=== PATIENT | female | born 1940 | race Caucasian/White ===

== ENCOUNTER 2017-12-02 21:38 | Outpatient (REF) | payer MEDICARE, SELFPAY | END 2017-12-02 21:58 | LOC: LBN 21:38 | PROVIDERS: PCP Family Medicine; Visit Provider Family Medicine | DX: R19.7 Diarrhea, unspecified (principal) | CPT/HCPCS: 82272 ==

== ENCOUNTER 2017-12-03 21:30 | Outpatient (REF) | payer MEDICARE, SELFPAY | END 2017-12-03 21:50 | LOC: NCHCN 21:30 | PROVIDERS: PCP Family Medicine; Visit Provider Family Medicine | DX: R19.7 Diarrhea, unspecified (principal) | CPT/HCPCS: 82272 ==

== ENCOUNTER 2017-12-04 20:37 | Outpatient (REF) | payer MEDICARE, SELFPAY | END 2017-12-04 20:57 | LOC: NCHCN 20:37 | PROVIDERS: PCP Family Medicine; Visit Provider Family Medicine | DX: R19.7 Diarrhea, unspecified (principal) | CPT/HCPCS: 82272 ==

== ENCOUNTER 2017-12-10 15:28 | Outpatient (REF) | payer MEDICARE, SELFPAY ==
[2017-12-10 21:25] LABS: CREATININE 1.08 mg/dL (0.55-1.02); Estimated GFR 49.33 (mL/min/1.73m2)
[2017-12-10 21:32] LABS: HCT 34.3 % (36.0-46.0); HGB 10.6 g/dL (12.0-15.5); Mean Corp. HGB Concentration 30.9 g/dL (32.0-36.0); Mean Corpuscular Hemoglobin 26.8 pg (27.0-33.0); Mean Corpuscular Volume 86.8 fL (80-95); Mean Platelet Volume 9.7 fL (8.0-11.0); Platelet Count 245 x1000/uL (130-400); RBC 3.95 m/cumm (4.00-5.20); White Blood Cell Count 5.06 k/cumm (4.4-10.8)
[2017-12-12 15:13] LABS: Levetiracetam 29.7 mcg/mL
== END 2017-12-10 15:48 ==
LOC: NCHCN 15:28
PROVIDERS: PCP Family Medicine; Visit Provider Family Medicine
DX: N18.9 Chronic kidney disease, unspecified (principal); R56.9 Unspecified convulsions; Z51.81 Encounter for therapeutic drug level monitoring; Z79.899 Other long term (current) drug therapy
CPT/HCPCS: 85027; 80177; 82565

== ENCOUNTER 2018-02-01 20:53 | Outpatient (REF) | payer MEDICARE, SELFPAY ==
[2018-02-01 22:23] LABS: VALPROIC ACID < 3 ug/mL (50-100)
== END 2018-02-01 21:13 ==
LOC: NCHCN 20:53
PROVIDERS: PCP Family Medicine; Visit Provider Family Medicine
DX: R56.9 Unspecified convulsions (principal); Z51.81 Encounter for therapeutic drug level monitoring; Z79.899 Other long term (current) drug therapy; N18.9 Chronic kidney disease, unspecified
CPT/HCPCS: 80164

== ENCOUNTER 2018-02-17 23:29 | Outpatient (REF) | payer MEDICARE, SELFPAY ==
[2018-02-19 15:32] LABS: Levetiracetam 30.2 mcg/mL
== END 2018-02-17 23:49 ==
LOC: NCHCN 23:29
PROVIDERS: PCP Family Medicine; Visit Provider Family Medicine
DX: N18.9 Chronic kidney disease, unspecified (principal); R56.9 Unspecified convulsions; Z51.81 Encounter for therapeutic drug level monitoring
CPT/HCPCS: 80177

== ENCOUNTER 2018-03-23 20:32 | Outpatient (REF) | payer MEDICARE, SELFPAY ==
[2018-03-23 22:12] LABS: Iron 33 ug/dL (50-175); Total Iron Binding Capacity 268 ug/dL (250-450); Transferrin Sat 12 % (15-50)
[2018-03-23 22:21] LABS: ALT 21 U/L (12-78); AST 19 U/L (15-37); Alkaline Phosphatase 82 U/L (46-116); Anion Gap 4.9 mmol/L (3-11); BUN 25 mg/dL (7-18); Bilirubin, Total 0.4 mg/dL (0.2-1.0); CO2 33.1 mmol/L (21.0-32.0); CREATININE 1.13 mg/dL (0.55-1.02); Calcium 8.9 mg/dL (8.5-10.1); Chloride 106 mmol/L (98-107); Estimated GFR 46.82 (mL/min/1.73m2); Glucose 93 mg/dL (70-100); Potassium 3.7 mmol/L (3.5-5.1); Sodium 144 mmol/L (136-145); TSH 1.03 uIU/mL (0.358-3.74)
== END 2018-03-23 20:52 ==
LOC: NCHCN 20:32
PROVIDERS: PCP Family Medicine; Visit Provider Family Medicine
DX: E05.90 Thyrotoxicosis, unspecified without thyrotoxic crisis or storm (principal); D64.9 Anemia, unspecified; M62.81 Muscle weakness (generalized); R73.09 Other abnormal glucose
CPT/HCPCS: 80053; 83036; 83540; 83550; 84443

== ENCOUNTER 2018-06-29 22:58 | Outpatient (REF) | payer MEDICARE, SELFPAY ==
[2018-06-29 23:45] LABS: CREATININE 1.14 mg/dL (0.55-1.02); Estimated GFR 46.34 (mL/min/1.73m2)
== END 2018-06-29 23:18 ==
LOC: NCHCN 22:58
PROVIDERS: PCP Family Medicine; Visit Provider Family Medicine
DX: N18.9 Chronic kidney disease, unspecified (principal); R79.89 Other specified abnormal findings of blood chemistry
CPT/HCPCS: 82565

== ENCOUNTER 2018-09-10 21:09 | Outpatient (REF) | payer MEDICARE, SELFPAY ==
[2018-09-10 21:41] LABS: Anion Gap 7.1 mmol/L (3-11); BUN 27 mg/dL (7-18); CO2 29.9 mmol/L (21.0-32.0); CREATININE 1.06 mg/dL (0.55-1.02); Calcium 8.5 mg/dL (8.5-10.1); Chloride 107 mmol/L (98-107); Estimated GFR 50.27 (mL/min/1.73m2); Glucose 83 mg/dL (70-100); Potassium 4.1 mmol/L (3.5-5.1); Sodium 144 mmol/L (136-145)
== END 2018-09-10 21:29 ==
LOC: LBN 21:09
PROVIDERS: PCP Family Medicine; Visit Provider Family Medicine
DX: M62.81 Muscle weakness (generalized) (principal); F33.8 Other recurrent depressive disorders
CPT/HCPCS: 80048

== ENCOUNTER 2018-10-01 20:44 | Outpatient (REF) | payer MEDICARE, SELFPAY ==
[2018-10-01 21:18] LABS: Abs Immature Grans 0.01 k/cumm (0.0-0.09); Absolute Basophil Count 0.01 k/cumm (0.0-0.2); Absolute Eosinophil Count 0.06 k/cumm (0.0-0.7); Absolute Monocyte Count 0.46 k/cumm (0.11-0.7); Absolute Neutrophil Count 3.68 k/cumm (1.2-6.7); Basophils % 0.2; Eosinophils % 1.1; HCT 36.6 % (36.0-46.0); HGB 11.3 g/dL (12.0-15.5); Immature Grans % 0.2; Lymphocytes % 23.6; Mean Corp. HGB Concentration 30.9 g/dL (32.0-36.0); Mean Corpuscular Hemoglobin 26.5 pg (27.0-33.0); Mean Corpuscular Volume 85.9 fL (80-95); Mean Platelet Volume 9.5 fL (8.0-11.0); Monocytes % 8.3; Neutrophils % 66.6; Platelet Count 250 x1000/uL (130-400); RBC 4.26 m/cumm (4.00-5.20); White Blood Cell Count 5.52 k/cumm (4.4-10.8)
[2018-10-01 21:36] LABS: ALT 20 U/L (12-78); AST 14 U/L (15-37); Albumin 2.8 g/dL (3.4-5.0); Alkaline Phosphatase 69 U/L (46-116); Anion Gap 4.9 mmol/L (3-11); BUN 29 mg/dL (7-18); Bilirubin, Total 0.2 mg/dL (0.2-1.0); CO2 31.1 mmol/L (21.0-32.0); CREATININE 1.19 mg/dL (0.55-1.02); Calcium 8.4 mg/dL (8.5-10.1); Chloride 107 mmol/L (98-107); Estimated GFR 43.98 (mL/min/1.73m2); Glucose 111 mg/dL (70-100); Potassium 3.6 mmol/L (3.5-5.1); Sodium 143 mmol/L (136-145); Total Protein 6.5 g/dL (6.4-8.2)
== END 2018-10-01 21:04 ==
LOC: NCHCN 20:44
PROVIDERS: PCP Family Medicine; Visit Provider Family Medicine
DX: R19.7 Diarrhea, unspecified (principal); R56.9 Unspecified convulsions; F33.8 Other recurrent depressive disorders
CPT/HCPCS: 80048; 80053; 85025

== ENCOUNTER 2018-10-06 21:54 | Outpatient (REF) | payer MEDICARE, SELFPAY | END 2018-10-06 22:14 | LOC: NCHCN 21:54 | PROVIDERS: PCP Family Medicine; Visit Provider Family Medicine | DX: R19.7 Diarrhea, unspecified (principal) | CPT/HCPCS: 87324 ==

== ENCOUNTER 2019-03-09 22:06 | Outpatient (REF) | payer MEDICARE, SELFPAY ==
[2019-03-09 23:05] LABS: ALT 18 U/L (14-59); AST 17 U/L (15-37); Albumin 2.8 g/dL (3.4-5.0); Alkaline Phosphatase 70 U/L (46-116); Anion Gap 7.6 mmol/L (3-11); BUN 25 mg/dL (7-18); Bilirubin, Total 0.2 mg/dL (0.2-1.0); CO2 30.4 mmol/L (21.0-32.0); Calcium 8.3 mg/dL (8.5-10.1); Chloride 106 mmol/L (98-107); Estimated GFR 53.76 (mL/min/1.73m2); Glucose 105 mg/dL (74-106); Potassium 3.5 mmol/L (3.5-5.1); Sodium 144 mmol/L (136-145); Total Protein 6.4 g/dL (6.4-8.2)
== END 2019-03-09 22:26 ==
LOC: LBN 22:06
PROVIDERS: PCP Family Medicine; Visit Provider Family Medicine
DX: R56.9 Unspecified convulsions (principal); D50.9 Iron deficiency anemia, unspecified; E03.9 Hypothyroidism, unspecified
CPT/HCPCS: 80053; 84443

== ENCOUNTER 2019-05-18 17:07 | Outpatient (REF) | payer MEDICARE, SELFPAY ==
[2019-05-23 10:49] LABS: Misc Referral (MAYO) See Comments
== END 2019-05-18 17:27 ==
LOC: LBN 17:07
PROVIDERS: PCP Family Medicine; Visit Provider Internal Medicine
DX: Z11.59 Encounter for screening for other viral diseases (principal); R50.9 Fever, unspecified
CPT/HCPCS: 87449; 87631

== ENCOUNTER 2019-06-23 18:30 | Outpatient (REF) | payer MEDICARE, MEDICAID, SELFPAY ==
[2019-06-23 19:07] LABS: CREATININE 0.96 mg/dL (0.55-1.02); Estimated GFR 56.36 (mL/min/1.73m2)
== END 2019-06-23 18:50 ==
LOC: NCHCN 18:30
PROVIDERS: PCP Family Medicine; Visit Provider Family Medicine
DX: R68.89 Other general symptoms and signs (principal)
CPT/HCPCS: 82565

== ENCOUNTER 2019-09-06 22:53 | Outpatient (REF) | payer MEDICARE, MEDICAID, SELFPAY ==
[2019-09-06 17:44] LABS: Anion Gap 7.5 mmol/L (3-11); BUN 21 mg/dL (7-18); CO2 29.5 mmol/L (21.0-32.0); CREATININE 0.89 mg/dL (0.55-1.02); Calcium 8.5 mg/dL (8.5-10.1); Chloride 105 mmol/L (98-107); Glucose 125 mg/dL (74-106); Potassium 3.8 mmol/L (3.5-5.1); Sodium 142 mmol/L (136-145)
== END 2019-09-06 23:13 ==
LOC: LBN 22:53
PROVIDERS: PCP Family Medicine; Visit Provider Family Medicine
DX: E03.9 Hypothyroidism, unspecified (principal); D64.9 Anemia, unspecified; R68.89 Other general symptoms and signs
CPT/HCPCS: 80048

== ENCOUNTER 2019-12-09 17:00 | Outpatient (REF) | payer MEDICARE, MEDICAID, SELFPAY ==
[2019-12-09 17:21] LABS: Estimated GFR 53.62 (mL/min/1.73m2)
== END 2019-12-09 17:20 ==
LOC: NCHCN 17:00
PROVIDERS: PCP Family Medicine; Visit Provider Family Medicine
DX: R68.89 Other general symptoms and signs (principal); F33.8 Other recurrent depressive disorders
CPT/HCPCS: 82565

== ENCOUNTER 2020-01-25 17:00 | Outpatient (REF) | payer MEDICARE, MEDICAID, SELFPAY ==
[2020-01-25 17:06] LABS: HCT 41.5 % (36.0-46.0); HGB 12.8 g/dL (11.2-15.7); MCH 27.2 pg (27.0-33.0); MCHC 30.8 % (32.0-36.0); MCV 88.1 fL (80-95); MPV 9.2 fL (8.0-11.0); Platelet Count 229 10^3/uL (130-400); RBC 4.71 10^6/uL (3.93-5.22); RDW 14.6 % (11.7-14.6); RDW-SD 46.9 fL; WBC 5.06 10^3/uL (4.4-10.8)
[2020-01-25 18:53] LABS: Hemoglobin A1C 5.8 % (<5.7)
[2020-01-25 18:57] LABS: Ferritin 72 ng/mL (8-252)
[2020-01-25 19:03] LABS: Vitamin D 25 Total 20.9 ng/ml (30-100)
== END 2020-01-25 17:20 ==
LOC: LBN 17:00
PROVIDERS: PCP Family Medicine; Visit Provider Family Medicine
DX: D50.9 Iron deficiency anemia, unspecified (principal); E55.9 Vitamin D deficiency, unspecified; R73.09 Other abnormal glucose
CPT/HCPCS: 82306; 85027; 82728; 83036

== ENCOUNTER 2020-04-09 18:24 | Outpatient (REF) | payer MEDICARE, MEDICAID, SELFPAY ==
[2020-04-09 17:46] LABS: ALT 26 U/L (14-59); AST 20 U/L (15-37); Alkaline Phosphatase 98 U/L (46-116); BUN 25 mg/dL (7-18); Bilirubin, Total 0.4 mg/dL (0.2-1.0); CREATININE 1.1 mg/dL (0.55-1.02); Calcium 8.8 mg/dL (8.5-10.1); Chloride 106 mmol/L (98-107); Estimated GFR 48.04 (mL/min/1.73m2); Glucose 106 mg/dL (74-106); Potassium 4.1 mmol/L (3.5-5.1); Sodium 143 mmol/L (136-145); TSH 1.36 uIU/mL (0.36-3.74); Total Protein 6.9 g/dL (6.4-8.2)
== END 2020-04-09 18:25 | disposition home or self-care (01) ==
LOC: LBN 18:24
PROVIDERS: PCP Family Medicine; Visit Provider Family Medicine
DX: F33.8 Other recurrent depressive disorders (principal); E11.9 Type 2 diabetes mellitus without complications; D50.9 Iron deficiency anemia, unspecified; K21.9 Gastro-esophageal reflux disease without esophagitis; R68.89 Other general symptoms and signs
CPT/HCPCS: 80053; 84443

== ENCOUNTER 2020-06-06 17:15 | Outpatient (REF) | payer MEDICARE, MEDICAID, SELFPAY ==
[2020-06-06 18:33] LABS: CREATININE 1.1 mg/dL (0.55-1.02); Estimated GFR 48.04 (mL/min/1.73m2)
== END 2020-06-06 17:16 | disposition home or self-care (01) ==
LOC: LBN 17:15
PROVIDERS: PCP Family Medicine; Visit Provider Family Medicine
DX: R68.89 Other general symptoms and signs (principal)
CPT/HCPCS: 82565

== ENCOUNTER 2020-10-03 19:10 | Outpatient (REF) | payer MEDICARE, MEDICAID, SELFPAY ==
[2020-10-03 20:00] LABS: Anion Gap 7.8 mmol/L (3-11); BUN 26 mg/dL (7-18); CO2 30.2 mmol/L (21.0-32.0); CREATININE 0.9 mg/dL (0.55-1.02); Calcium 8.7 mg/dL (8.5-10.1); Chloride 109 mmol/L (98-107); Glucose 105 mg/dL (74-106); Potassium 4.4 mmol/L (3.5-5.1); Sodium 147 mmol/L (136-145)
== END 2020-10-03 19:11 | disposition home or self-care (01) ==
LOC: NCHCN 19:10
PROVIDERS: PCP Family Medicine; Visit Provider Family Medicine
DX: R68.89 Other general symptoms and signs (principal)
CPT/HCPCS: 80048

== ENCOUNTER 2020-12-05 07:36 | Outpatient (REF) | payer MEDICARE, MEDICAID, SELFPAY ==
[2020-12-04 22:16] LABS: Estimated GFR 53.48 (mL/min/1.73m2)
== END 2020-12-05 07:37 | disposition home or self-care (01) ==
LOC: LBN 07:36
PROVIDERS: PCP Family Medicine; Visit Provider Family Medicine
DX: R68.89 Other general symptoms and signs (principal)
CPT/HCPCS: 82565

== ENCOUNTER 2021-04-12 21:01 | Outpatient (REF) | payer MEDICARE, MEDICAID, SELFPAY ==
[2021-04-12 21:26] LABS: ALT 25 U/L (14-59); AST 26 U/L (15-37); Albumin 2.9 g/dL (3.4-5.0); Alkaline Phosphatase 87 U/L (46-116); Anion Gap 4.8 mmol/L (3-11); BUN 20 mg/dL (7-18); Bilirubin, Total 0.3 mg/dL (0.2-1.0); CO2 32.2 mmol/L (21.0-32.0); CREATININE 0.8 mg/dL (0.55-1.02); Calcium 8.4 mg/dL (8.5-10.1); Chloride 105 mmol/L (98-107); Glucose 102 mg/dL (74-106); Potassium 3.8 mmol/L (3.5-5.1); Sodium 142 mmol/L (136-145); Total Protein 6.8 g/dL (6.4-8.2)
[2021-04-12 21:48] LABS: TSH 1.82 uIU/mL (0.36-3.74)
== END 2021-04-12 21:02 | disposition home or self-care (01) ==
LOC: LBN 21:01
PROVIDERS: PCP Family Medicine; Visit Provider Family Medicine
DX: E11.9 Type 2 diabetes mellitus without complications (principal); D50.9 Iron deficiency anemia, unspecified; E55.9 Vitamin D deficiency, unspecified; E03.9 Hypothyroidism, unspecified
CPT/HCPCS: 80053; 84443

== ENCOUNTER 2021-12-20 15:36 | Outpatient (REF) | payer SELFPAY ==
[2021-12-20 17:23] LABS: Hemoglobin A1C 6.2 % (<5.7)
== END 2021-12-20 15:37 | disposition home or self-care (01) ==
LOC: NCHCN 15:36
PROVIDERS: PCP Family Medicine; Visit Provider Family Medicine
DX: E11.9 Type 2 diabetes mellitus without complications (principal)
CPT/HCPCS: 83036

== ENCOUNTER 2022-03-14 15:16 | Outpatient (REF) | payer MEDICARE, MEDICAID, SELFPAY ==
[2022-03-14 15:35] LABS: Abs Immature Grans 0.02 10^3/uL (0.0-0.06); Absolute Basophil Count 0.02 10^3/uL (0.0-0.2); Absolute Eosinophil Count 0.12 10^3/uL (0.0-0.7); Absolute Lymphocyte Count 1.25 10^3/uL (1.2-3.4); Absolute Monocyte Count 0.43 10^3/uL (0.1-0.8); Absolute Neutrophil Count 3.24 10^3/uL (1.2-6.7); Basophils % 0.4; Eosinophils % 2.4; HCT 36.4 % (36.0-46.0); HGB 11.4 g/dL (11.2-15.7); Immature Grans % 0.4; Lymphocytes % 24.6; MCH 27.9 pg (27.0-33.0); MCHC 31.3 % (32.0-36.0); MCV 89 fL (80-95); MPV 9.4 fL (8.0-11.0); Monocytes % 8.5; Neutrophils % 63.7; Platelet Count 240 10^3/uL (130-400); RBC 4.09 10^6/uL (3.93-5.22); RDW 14.3 % (11.7-14.6); RDW-SD 46.3 fL; WBC 5.08 10^3/uL (4.4-10.8)
[2022-03-14 22:57] LABS: Estimated Average Glucose 105 mg/dL; Hemoglobin A1C 5.3 % (<5.7)
== END 2022-03-14 15:17 | disposition home or self-care (01) ==
LOC: NCHCN 15:16
PROVIDERS: PCP Family Medicine; Visit Provider Family Medicine
DX: E11.9 Type 2 diabetes mellitus without complications (principal)
CPT/HCPCS: 83036; 85025

== ENCOUNTER 2022-04-05 13:16 | Outpatient (REF) | payer MEDICARE, MEDICAID, SELFPAY ==
[2022-04-05 13:46] LABS: Anion Gap 7.9 mmol/L (3-11); BUN 16 mg/dL (7-18); CO2 31.1 mmol/L (21.0-32.0); CREATININE 1.1 mg/dL (0.55-1.02); Calcium 8.7 mg/dL (8.5-10.1); Chloride 106 mmol/L (98-107); Glucose 103 mg/dL (74-106); Potassium 3.9 mmol/L (3.5-5.1); Sodium 145 mmol/L (136-145)
== END 2022-04-05 13:17 | disposition home or self-care (01) ==
LOC: LBN 13:16
PROVIDERS: PCP Family Medicine; Visit Provider Family Medicine
DX: E11.9 Type 2 diabetes mellitus without complications (principal)
CPT/HCPCS: 80048

== ENCOUNTER 2022-06-18 15:19 | Outpatient (REF) | payer MEDICARE, MEDICAID, SELFPAY ==
[2022-06-18 16:44] LABS: Hemoglobin A1C 5.6 % (<5.7)
== END 2022-06-18 15:20 | disposition home or self-care (01) ==
LOC: LBN 15:19
PROVIDERS: PCP Family Medicine; Visit Provider Family Medicine
DX: E11.9 Type 2 diabetes mellitus without complications (principal)
CPT/HCPCS: 83036